=== PATIENT | male | born 1990 | race Two or more races ===

== ENCOUNTER 2018-03-24 20:08 | Emergency (ER) | payer OTHER ==
--- NOTE | 2018-03-24 21:04 | EDPHY ---
H & P Stated Complaint: abd pain x 1week, anxiety? - Personal History Current Tetanus Diphtheria and Acellular Pertussis (TDAP): Yes - Medical/Surgical History Hx Asthma: No Hx Chronic Respiratory Disease: No Hx Diabetes: No Hx Cardiac Disease: No Hx Renal Disease: No Hx Cirrhosis: No Hx Alcoholism: No Hx HIV/AIDS: No Hx Splenectomy or Spleen Trauma: No Other PMH: panick attck, vit D defiency, high WBC - Social History Smoking Status: Never smoked Time Seen by Provider: 03/24/18 20:38 HPI/ROS: CHIEF COMPLAINT: Abdominal pain times 4-5 months HISTORY OF PRESENT ILLNESS: 27-year-old male complaining of 4-5 months of intermittent diffuse abdominal pain and cramping which occurs primarily postprandially. Currently asymptomatic.. Bowel movements have been normal. No nausea or vomiting. No melena or hematochezia. No back or flank pain. No testicular pain. Normal urinary habits. REVIEW OF SYSTEMS: A ten point review of systems was performed and is negative with the exception of the items mentioned in the HPI PAST MEDICAL & SURGICAL HISTORY: No pertinent medical or surgical history SOCIAL HISTORY: Nonsmoker. No drug use. PHYSICAL EXAM (Prior to examination, patient consented to physical exam, hands were washed and my usual and customary physical exam procedures followed) 1) GENERAL: Well-developed, well-nourished, alert and oriented. Appears to be in no acute distress. 2) HEAD: Normocephalic, atraumatic 3) HEENT: Pupils equal, round, reactive to light bilaterally. Sclera anicteric. Nasopharynx, oropharynx, clear, no lesions. Moist mucous membranes 4) NECK: Full range of motion, no meningeal signs. 5) LUNGS: Clear auscultation bilaterally, no wheezes, no rhonchi, no retractions. 6) HEART: Regular rate and rhythm, no murmur, no heave, no gallop. 7) ABDOMEN: No guarding, no rebound, no focal tenderness, negative McBurney's, negative Myers's, negative Rovsing's, negative peritoneal sign, I am unable to elicit any abdominal pain on exam. 8) MUSCULOSKELETAL: Moving all extremities, no focal areas of tenderness, no obvious trauma. No peripheral edema or discoloration. 9) BACK: No CVA tenderness, no midline vertebral tenderness, no fluctuance, no step-off, no obvious trauma, no visual or palpable abnormality. 10) SKIN: No rash, no petechiae. 11) Psychiatric: Patient is oriented X 3, there is no agitation. DIFFERENTIAL DIAGNOSIS: My differential diagnosis includes, but is not limited to, acute appendicitis, acute cholecystitis, bowel obstruction, acute pancreatitis,, gastritis and urinary tract infection. The patient understands that this diagnosis is provisional and can never be 100% accurate. This is a partial list of diagnoses considered. These considerations are based on history , physical exam, past history and reassessment. (Thelma Lennon) Constitutional: Initial Vital Signs Temperature (C) 36.4 C 03/24/18 20:11 Heart Rate 119 H 03/24/18 20:11 Respiratory Rate 20 03/24/18 20:11 Blood Pressure 154/91 H 03/24/18 20:11 O2 Sat (%) 100 03/24/18 20:11 O2 Delivery Mode Room Air Allergies/Adverse Reactions: No Known Allergies Allergy (Unverified 03/24/18 20:11) Home Medications: Medication Instructions Recorded NK [No Known Home Meds] 03/24/18 Medical Decision Making ED Course/Re-evaluation: 9:54 p.m.: Patient was re-evaluated with serial examinations. At this time his abdomen remains soft no guarding no rebound. Given IV hydration. Heart rate in the 80s. Discussed his laboratory studies. At this time I think that acute surgical abdominal pathology, acute pancreatitis, acute appendicitis, acute cholecystitis, less than likely in this patient. Addition he has had no testicular complaints. This has been ongoing issue for the past 4-5 months. Have recommended initiation of PPI and recommended bland diet, given usual and customary dietary precautions and instructions. I have also recommended follow up with Gastroenterology. In the meantime should he develop new or worsening abdominal pain needs to return to the ER immediately. He feels comfortable being discharged. Usual and customary abdominal precautions instructions provided. Care of patient under supervision of secondary supervising physician Dr Galarza . (Thelma Lennon) The patient was evaluated and managed by the physician's wardrobe assistant. My cosignature indicates that I reviewed the chart and I agree with the findings and plan of care as documented. I am the secondary supervising physician. ( Kisha Galarza) - Data Points Laboratory Results: Laboratory Results 03/24/18 21:00 03/24/18 21:00 03/24/18 03/24/18 03/24/18 21:00 21:00 20:59 WBC 7.04 10^3/uL 10^3/uL (3.80-9.50) RBC 5.08 10^6/uL 10^6/uL (4.40-6.38) Hgb 15.8 g/dL g/dL (13.7-17.5) Hct 44.1 % % (40.0-51.0) MCV 86.8 fL fL (81.5-99.8) MCH 31.1 pg pg (27.9-34.1) MCHC 35.8 g/dL g/dL (32.4-36.7) RDW 12.2 % % (11.5-15.2) Plt Count 270 10^3/uL 10^3/uL (150-400) MPV 10.0 fL fL (8.7-11.7) Neut % (Auto) 61.6 % % (39.3-74.2) Lymph % (Auto) 28.1 % % (15.0-45.0) Andrews % (Auto) 8.7 % % (4.5-13.0) Eos % (Auto) 0.6 % % (0.6-7.6) Baso % (Auto) 0.7 % % (0.3-1.7) Nucleat RBC Rel Count 0.0 % % (0.0-0.2) Absolute Neuts (auto) 4.34 10^3/uL 10^3/uL (1.70-6.50) Absolute Lymphs (auto) 1.98 10^3/uL 10^3/uL (1.00-3.00) Absolute Monos (auto) 0.61 10^3/uL 10^3/uL (0.30-0.80) Absolute Eos (auto) 0.04 10^3/uL 10^3/uL (0.03-0.40) Absolute Basos (auto) 0.05 10^3/uL 10^3/uL (0.02-0.10) Absolute Nucleated RBC 0.00 10^3/uL 10^3/uL (0-0.01) Immature Gran % 0.3 % % (0.0-1.1) Immature Gran # 0.02 10^3/uL 10^3/uL (0.00-0.10) Sodium 140 mEq/L mEq/L (135-145) Potassium 3.9 mEq/L mEq/L (3.5-5.2) Chloride 105 mEq/L mEq/L (97-110) Carbon Dioxide 21 mEq/l L mEq/l (22-31) Anion Gap 14 mEq/L mEq/L (8-16) BUN 12 mg/dL mg/dL (7-23) Creatinine 0.9 mg/dL mg/dL (0.7-1.3) Estimated GFR > 60 Glucose 104 mg/dL H mg/dL (70-100) Calcium 9.9 mg/dL mg/dL (8.5-10.4) Total Bilirubin 1.2 mg/dL mg/dL (0.1-1.4) Conjugated Bilirubin 0.5 mg/dL mg/dL (0.0-0.5) Unconjugated Bilirubin 0.7 mg/dL mg/dL (0.0-1.1) AST 23 IU/L IU/L (17-59) ALT 32 IU/L IU/L (21-72) Alkaline Phosphatase 74 IU/L IU/L (38-126) Total Protein 7.7 g/dL g/dL (6.3-8.2) Albumin 4.7 g/dL g/dL (3.5-5.0) Lipase 158 IU/L IU/L (23-300) Urine Color YELLOW Urine Appearance CLEAR Urine pH 7.0 (5.0-7.5) Ur Specific [place] 1.009 (1.002-1.030) Urine Protein NEGATIVE (NEGATIVE) Urine Ketones TRACE H (NEGATIVE) Urine Blood NEGATIVE (NEGATIVE) Urine Nitrate NEGATIVE (NEGATIVE) Urine Bilirubin NEGATIVE (NEGATIVE) Urine Urobilinogen NEGATIVE EU EU (0.2-1.0) Ur Leukocyte Esterase NEGATIVE (NEGATIVE) Urine RBC 1-3 /hpf /hpf (0-3) Urine WBC 1-3 /hpf /hpf (0-3) Ur Epithelial Cells TRACE /lpf /lpf (NONE-1+) Amorphous Sediment PRESENT /hpf /hpf (NONE-1+) Urine Bacteria TRACE /hpf H /hpf (NONE SEEN) Urine Mucus TRACE /lpf /lpf (NONE-1+) Urine Sperm PRESENT /hpf /hpf (NONE SEEN) Urine Glucose NEGATIVE (NEGATIVE) Departure - Departure Disposition: Home, Routine, Self-Care Clinical Impression: Abdominal pain Qualifiers: Abdominal location: generalized Qualified Code(s): R10.84 - Generalized abdominal pain Condition: Good Instructions: Acute Abdominal Pain (ED) Additional Instructions: Seek immediate medical attention if you develop new or worsening symptoms, if you develop fevers, chills, inability to tolerate oral intake or any other symptoms that concerns you. Recommend you eat bland, non spicy foods. Referrals: Matthew Mejia MD [Medical Doctor] - As per Instructions
[2018-03-24 21:07] LABS: PLATELET COUNT 270 10^3/uL (150-400)
[2018-03-24 22:12] VITALS: BP 151/96
== END 2018-03-24 22:12 | disposition home or self-care (01) ==
DX: R10.84 Generalized abdominal pain (principal)